=== PATIENT | male | born 1975 ===

== ENCOUNTER 2024-09-20 05:27 | Inpatient (IN) | payer SELFPAY ==
[2024-09-20] MEDS ORDERED: Sodium Chloride 0.9% 10 ML Syringe FLUSH PRN (05:37)
[2024-09-20 05:46] LABS: BASOPHILS PERCENT AUTO 0.3 % (0.0-1.0); EOSINOPHILS PERCENT AUTO 2.2 % (1.0-3.0); LYMPHOCYTES PERCENT AUTO 28.9 % (20.5-50.1); MONOCYTES PERCENT AUTO 9.8 % (2-8); NEUTROPHILS PERCENT AUTO 58.8 % (42.2-75.2); PLATELET COUNT,PLT 179 10^3/uL (150-450); RED BLOOD CELL COUNT 4.97 10^6/uL (4.6-6.2); WHITE BLOOD CELL COUNT,WBC 5.9 10^3/uL (5.0-10.0)
[2024-09-20] MEDS: Furosemide 40 MG/4 ML VIAL IVPUSH ONE (06:02)
[2024-09-20 06:07] LABS: ALANINE AMINOTRANSFERASE,ALT 27 U/L (16-63); ASPARTATE AMNIOTRANSFERASE,AST 16 U/L (15-37); BILIRUBIN TOTAL 1.2 mg/dL (0.2-1.0); BLOOD UREA NITROGEN,BUN 14 mg/dL (7-18); CARBON DIOXIDE,CO2 26 mmol/L (21-32); CHLORIDE,CL 103 mmol/L (98-107); CREATININE 0.90 mg/dL (0.70-1.30); EST CRCL DRUG DOSING (CG) 97.10 mL/min; GLUCOSE RANDOM 312 mg/dL (70-99); POTASSIUM,K 3.7 mmol/L (3.5-5.1); PROTEIN TOTAL,TP 6.8 g/dL (6.4-8.2); SODIUM,NA 136 mmol/L (136-145)
[2024-09-20 06:08] LABS: INR 1.0 (0.9-1.2); LACTIC ACID 1.0 mmol/L (0.4-2.0); PTT,PARTIAL THROMBOPLSTIN TIME 24.9 SEC (22.0-34.0)
[2024-09-20 06:10] LABS: A/G RATIO 0.89; ESTIMATED GFR 103 mL/min (>=60)
[2024-09-20 06:12] LABS: D-DIMER QUANTITATIVE 290.0 ng/mL (0-400)
[2024-09-20 06:14] LABS: B-TYPE NATRIURETIC PEPTIDE,BNP 268 pg/ml (0-100)
[2024-09-20] MEDS ORDERED: 50% Dextrose in Water 50 ML Syringe IVPUSH PRN (06:16)
[2024-09-20] MEDS: Insulin Regular, Human 100 Units/ML 10 ML Vial SUBCUT ONE (06:59)
[2024-09-20 08:03] LABS: APPEARANCE,URINE CLEAR (CLEAR); GLUCOSE,URINE 500 (NEGATIVE); OCCULT BLOOD,URINE TRACE-INTACT (NEGATIVE)
[2024-09-20 08:57] LABS: EPITHELIAL CELLS,URINE NOT SEEN /HPF (NOT SEEN)
[2024-09-20 10:33] LABS: CORONAVIRUS COVID-19 NAA NEGATIVE (NEGATIVE); INFLUENZA A NAA NEGATIVE (NEGATIVE); INFLUENZA B NAA NEGATIVE (NEGATIVE); RESPIRATORY SYNCYTIAL VIR NAA NEGATIVE (NEGATIVE)
== END 2024-09-20 14:00 | disposition home or self-care (01) | DRG 293 ==
LOC: DL.ED 05:27 → DL.MS 07:13 → DL.ED 08:02
PROVIDERS: ADMIT Internal Medicine; ATTEND Internal Medicine
DX: I11.0 Hypertensive heart disease with heart failure (principal); E11.65 Type 2 diabetes mellitus with hyperglycemia; I25.10 Atherosclerotic heart disease of native coronary artery without angina pectoris; I25.2 Old myocardial infarction; I50.9 Heart failure, unspecified; F41.9 Anxiety disorder, unspecified; I16.0 Hypertensive urgency; Z95.5 Presence of coronary angioplasty implant and graft
CPT/HCPCS: 36415; 71045; 80053; 81001; 82947; 83605; 83735; 83880; 84145; 84484; 85025; 85379; 85610; 85730; 87637; 93005; 96374; 99223; 99285-25; A9270-GY; J1938